=== PATIENT | female | born 1950 | race Caucasian/White ===

== ENCOUNTER 2021-05-09 23:52 | Emergency (ER) | payer SELFPAY ==
[~2021-05-09] VITALS: Ht 160 cm; Wt 56.0 kg
[2021-05-09 23:55] VITALS: TEMP 98
[2021-05-10 01:06] VITALS: BP 140/74; PULSE 56
== END 2021-05-10 01:07 | disposition home or self-care (01) ==
LOC: COL.ER 23:52
DX: I10 Essential (primary) hypertension (principal)